=== PATIENT | female | born 1990 | race Caucasian/White ===

== ENCOUNTER → 2017-04-11 | Outpatient (CLI) | payer BC ==
--- NOTE | 2017-04-11 17:54 | DIAGNOSTIC IMAGING REPORT ---
L LOWER EXT JOINT WITHOUT CLINICAL HISTORY: KNEE trauma. Pain. TECHNIQUE: Multiaxial MRI acquisition COMPARISON STUDY: None FINDINGS: Signal characteristics of the osseous structures are considered unremarkable. There is a very slight contusion of the central aspect lateral femoral condyle. There is a trace amount of bone marrow edematous change of the lateral femoral condyle. The patellofemoral joint is unremarkable. A small joint effusion is present. There is a tear of the anterior cruciate ligament. Posterior cruciate ligament appears intact. the medial and lateral menisci are unremarkable. There is moderate soft tissue edematous change about the knee. IMPRESSION: 1. Tear anterior cruciate ligament. 2. Minimal contusion lateral femoral condyle and lateral tibial plateau. 3. Joint effusion. 4. All remaining ligamentous and tendinous structures are intact. The above report was generated using voice recognition software. It may contain grammatical, syntax or spelling errors. Electronically signed by: Mason Shrestha M.D. 04/11/2017 5:53 PM Dictated Date/Time: 04/11/2017 5:47 PM
== END | disposition home or self-care (01) ==
LOC: C.MRIBC 16:41
PROVIDERS: ATTEND Orthopaedic Surgery
DX: M25.562 Pain in left knee (principal); S83.512A Sprain of anterior cruciate ligament of left knee, initial encounter; X58.XXXA Exposure to other specified factors, initial encounter; M25.462 Effusion, left knee

== ENCOUNTER → 2017-05-18 | Day surgery (SDC) | payer BC ==
[2017-05-12 09:45] VITALS: Ht 162.6 cm; Wt 65.9 kg
[~2017-05-18] VITALS: Ht 162.6 cm; Wt 65.9 kg
[~2017-05-18] MED LIST: ATROPINE SULFATE 0.1 MG/ML 5ML SYR IV PRN; BUPIVACAINE/EPINEPHRINE 0.5% MPF 1:200,000 30 ML VIAL ONE; CEFAZOLIN 1000MG IV PUSH 7.5 ML IV SCH; CEFAZOLIN SOD 1 GM VIAL ONE; CEFAZOLIN SOD 1000MG/7.5 ML IV PUSH IV ONE; DEXAMETHASONE SOD INJ 4 MG/ML VIAL ONE; ETON1IMP2; EpHEDrine SULFATE INJ 50 MG/ML AMP IV PRN; EpINEphrine HCL INJ 1 MG/ML 1ML SYRINGE ONE; EpINEphrine INJ 1MG/ML AMP 1 MG/ML AMP ONE; FENTANYL CITRATE INJ 50 MCG/1 ML 2 ML VIAL IV PRN; FENTANYL CITRATE INJ 50 MCG/1 ML 2 ML VIAL ONE; KETO10TA PO; KETOROLAC TROMETHAMINE 30 MG/ML VIAL ONE; LACTATED RINGER'S 1000ML 1,000 ML IV SCH; LIDOCAINE HCL 2% 2 ML VIAL (20MG/ML) ONE; MIDAZOLAM HCL 1 MG/ML 2ML VIAL ONE; ONDANSETRON INJ 2 MG/ML 2 ML VIAL IV PRN; ONDANSETRON INJ 2 MG/ML 2 ML VIAL ONE; OXYC-57 PO; OXYCODONE/ACETAMINOPHEN 5-325 TAB PO PRN; PROPOFOL IV EMULSION 10 MG/ML 20 ML VIAL IV ONE; ROPIVACAINE 0.5% 5 MG/ML 30 ML VIAL ONE; SCOPOLAMINE 1.5 MG TDSY TD ONE; SODIUM CHLORIDE 0.9% 1000ML 1,000 ML IV SCH
--- NOTE | 2017-05-18 06:48 | History & Physical Bridge - SC ---
H&P Re-Evaluation Bridge Note: I have examined the patient, reviewed the History & Physical and in the interval since the performance of the History & Physical I have noted the following changes of clinical significance: No changes noted
--- NOTE | 2017-05-18 09:37 | [facility] Post Operative Brief Note ---
Immediate Operative Summary Operative Date May 18, 2017. Pre-Operative Diagnosis Left Knee ACL Rupture Post-Operative Diagnosis same Procedure(s) Performed Left Knee Arthroscopic Anterior Cruciate Ligament Reconstruction with Hamstring Autograft Surgeon Dr. Haro Trace Evidence Technician Surgeon(s) Josh Castro PA-C Estimated Blood Loss Minimal Findings Consistent with Post-Op Diagnosis Specimens None Drains None Anesthesia Type General Regional Complication(s) none Disposition Accompanied Pt To Recovery: no Disposition: Recovery Room / PACU
--- NOTE | 2017-05-18 09:37 | Discharge Instructions-SurgCtr ---
Discharge Instructions Date of Service May 18, 2017. Visit Reason for Visit: Left Knee Acl Rupture Discharge Discharge Diagnosis / Problem: LEFT ACL TEAR Discharge Goals Goal(s): Decrease discomfort, Improve function, Therapeutic intervention Activity Recommendations Activity Limitations: per Instructions/Follow-up section Weightbearing Status: Left weightbearing (as tolerated WITH KNEE IMMOBILIZER ) Anesthesia . Post Anesthesia Instructions: If you have had General Anesthesia or IV Sedation: * Do not drive today. * Resume driving when surgeon permits. * Do not make important decisions or sign legal documents today. * Call surgeon for: 1. Temperature elevations greater than 101 degrees F. 2. Uncontrollable pain. 3. Excessive bleeding. 4. Persistent nausea and vomiting. 5. Medication intolerance (nausea, vomiting or rash). * For nausea and vomiting use only clear liquids such as: tea, soda, bouillon until nausea subsides, then gradually increase diet as tolerated. * If you have any concerns or questions, call your surgeon's office. If physician is unavailable and it is an emergency, call 911 or go to the nearest emergency room. . Instructions / Follow-Up Instructions / Follow-Up MEDICATIONS: * Resume previous medications unless instructed otherwise by your surgeon. * Always take pain medication on a full stomach or with food to avoid upset stomach. * Do not drink alcohol or drive while taking narcotics. * Ibuprofen or Tylenol may be taken if narcotic not needed. NO IBUPROFEN WHILE TAKING TORADOL SPECIAL CARE INSTRUCTIONS: __ None _X_ Keep extremity elevated and iced x 48 hours; apply ice 20-30 minutes 8-10 times/day. May remove at night. _X_ Crutches __ May discard when able X__ Brace (FOR WEIGHTBEARING/WALKING UNTIL FOLLOW UP APPOINTMENT) __ 24 hrs/day __ Remove at night X__ Dressing __ Maintain until seen in office, may shower with plastic over site _X_ Remove dressings in 24-48 hours and then may shower _X_ Cover incisions with band-aids after showering _X_ Do not remove steri-strips Call physician if chills or temperature rises above 102 degrees or pain unrelieved by prescribed pain medications. Office [phone] FOLLOW UP IN 2 WEEKS Diet Recommendations Home Diet: resume previous diet Procedures Procedures Performed: Left Knee Arthroscopic Anterior Cruciate Ligament Reconstruction with Hamstring Autograft Pending Studies Studies pending at discharge: no Medical Emergencies . Who to Call and When: Medical Emergencies: If at any time you feel your situation is an emergency, please call 911 immediately. . Non-Emergent Contact Non-Emergency issues call your: Surgeon . . "Provider Documentation" section prepared by Darnell Castro. .
[2017-05-18] MEDS: FENTANYL CITRATE INJ 50 MCG/1 ML 2 ML VIAL IV PRN ×3 (10:12→10:34)
--- NOTE | 2017-05-18 10:44 | OPERATIVE REPORT ---
DATE OF OPERATION: 05/18/2017 SURGEON: Tito Haro MD POLLS OR SURVEYS INTERVIEWER: Darnell PETE PREOPERATIVE DIAGNOSIS: Left knee anterior cruciate ligament tear. POSTOPERATIVE DIAGNOSIS: Same. PROCEDURE PERFORMED: 1. Left knee exam under anesthesia. 2. Left knee diagnostic arthroscopy. 3. Left knee arthroscopic ACL reconstruction with 7/7.5 mm semitendinosus/gracilis autograft. COMPLICATIONS: None. ESTIMATED BLOOD LOSS: Minimal. TOURNIQUET TIME: 59 minutes at 300 mmHg. ANESTHESIA: General with adductor canal block. DRAINS: None. SPECIMENS: None. 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 She came down and landed awkwardly on her left knee, it gave out and felt a pop. She is seen in clinic and diagnosed with an ACL tear, which was confirmed by MRI. She has restored her knee range of motion and elected to proceed with surgical treatment. OPERATIVE FINDINGS: Examination under anesthesia of the left knee revealed just a small knee effusion. Her range of motion was full extension and slight hyperextension to 135 degrees of flexion. A positive Zeferino, grade 2 pivot, negative anterior drawer, negative posterior drawer. No varus or valgus instability. Swathi's is negative for mechanical symptoms. There was no posterolateral rotatory instability. ARTHROSCOPIC FINDINGS: Arthroscopic findings revealed a very small knee effusion. The undersurface of the patella and trochlea were well preserved. In the intercondylar notch, the ACL was torn. The PCL was intact. In the medial compartment, the articular surface and meniscus was normal. In the lateral compartment, the articular surface was normal. There was just a small scuff on the superior surface of the posterior horn of the lateral meniscus which was just a scuff really and less than 10% torn. This was completely stable and there is no indication for repair. OPERATIVE PROCEDURE: The patient taken to the operating, identified and placed on the operating table in supine position. All contact areas were appropriately padded. An adductor canal block had been provided in the holding area. General anesthetic was implemented. The patient did receive IV antibiotics. A left thigh tourniquet was then placed and the left knee was then examined under anesthesia with findings as described above. The left thigh was then prepped and draped in usual sterile fashion. Left leg was elevated and exsanguinated with Esmarch and tourniquet was placed at 300 mmHg. A 4-5 cm incision made directly over the pes tendons. Sharp dissection was got through the subcutaneous tissues down to the level of the sartorius fascia. The subcutaneous tissue mobilized circumferentially. An oblique incision was made in the sartorius fascia above the hamstring tendons. The hamstring tendons were then harvested off the anterior aspect of the tibia. A #2 Ticron whipstitch was placed in the end of each tendon. Each tendon was then harvested with a closed ended tendon stripper. They were taken to back table and cut to 21 cm in length. The muscle was stripped off the opposite end of the tendon. A similar #2 Ticron whipstitch was placed in the opposite end of the tendon. The tendons were then folded over. The femoral side fit through a 7 graft tunnel and the tibial side through a 7.5. The graft was then placed on the graft board and 10 pounds of tension were applied until ready for implantation. During graft preparation, routine left knee arthroscopy was then performed through typical anteromedial and anterolateral portals. A superolateral outflow portal was established for outflow. The remnant of the ACL was excised. A small notchplasty was performed. The upper part of the notch was pretty tight and very much in A-frame look to it and we did widen this out to a saqib arch appearance, but the inferior aspect was fairly wide and did not need much notchplasty. Once the notchplasty was completed, I examined the knee and there was no need for meniscal or cartilage work. Attention was then drawn to the ACL reconstruction. With the use of the tibial guide set at 50 degrees, a guidewire was placed in the area of proposed tibial tunnel. It was overreamed with an 7.5 mm solid reamer. Tunnel was cleaned of all soft tissue debris. A 6 mm over the top guide was placed in the anterior medial portal and the knee was maximally flexed. The guidewire was placed in the area of the proposed femoral tunnel. This was overdrilled with a 4.5 mm Endobutton drill bit. The tunnel length measured 35 mm in length. A 15 mm closed loop Endobutton was selected. The tunnel was then overdrilled with a 7 mm acorn reamer for a distance of 30 mm. The tunnel was cleaned of all debris. The graft was then looped over a 15 mm closed loop Endobutton. The Beath pin was then used to pass the graft through the tibial tunnel up into the femoral tunnel. The Endobutton was flipped. The knee was cycled several times and brought out into full extension. There was no impingement. The graft was then tensioned with the knee in full extension with the Intrafix tensioner at 20 pounds. The tunnel was then dilated and a small Biocryl Intrafix sheath was placed followed by a 6/7 Biocryl Intrafix screw. This brought excellent distal fixation. The knee was examined. There is no Zeferino, no pivot. The scope was placed back in the knee joint. The graft was appropriately tensioned in both flexion and extension. The shaver was then placed to debride the knee of all extraneous debris. Once this was complete, the arthroscopic instruments were then removed from the joint. The portals were closed with 3-0 Prolene suture in a simple fashion. The knee was injected with 30 mL of 0.5% ropivacaine with epinephrine and 30 mg of Toradol. The sartorius fascia was then closed over the anterior medial aspect of the tibia with 0 Vicryl suture. The wound was irrigated. The tourniquet was then let down for a tourniquet time of 59 minutes. Hemostasis was assured with use of electrocautery. The subcutaneous tissue then closed with #2 Dexon suture in a buried interrupted fashion. Skin was closed with 3-0 Prolene suture in a subcuticular fashion. Leg was then cleaned and dried, Steri-Strips, Xeroform, 4 x 4, sterile cast padding and Lul bandage, cold pack and knee immobilizer applied. The patient then brought out of general anesthesia and transferred to the recovery room in stable condition. The patient tolerated with no complication. All needle and sponge counts were correct at the end of the operation. I attest to the content of the Intraoperative Record and any orders documented therein. Any exceptions are noted below. MTDD
[2017-05-18 11:02] VITALS: TEMP 36.6
[2017-05-18 12:00] VITALS: BP 112/66; PULSE 78; O2SAT 100
--- NOTE | 2017-05-18 12:19 | Anesthesia Progress Nt - [facility] ---
Anesthesia Post Op Note Date & Time May 18, 2017 at 12:18 Vital Signs Pain Intensity: 2 Vital Signs Past 12 Hours Date Time Temp Pulse Resp B/P (MAP) Pulse Ox O2 Delivery O2 Flow Rate FiO2 05/18/17 12:00 78 16 112/66 (81) 100 Room Air 05/18/17 11:39 94 14 113/68 (83) 100 Room Air 05/18/17 11:02 36.6 85 12 112/72 (85) 97 05/18/17 10:57 94 15 96 05/18/17 10:57 96 15 05/18/17 10:57 36.6 95 12 123/68 98 Room Air 05/18/17 10:55 123/68 05/18/17 10:52 114 14 05/18/17 10:52 113 14 98 05/18/17 10:50 120/68 05/18/17 10:47 101 26 96 05/18/17 10:47 101 26 05/18/17 10:45 124/64 05/18/17 10:42 95 22 05/18/17 10:42 93 22 97 05/18/17 10:40 104/72 05/18/17 10:37 81 14 05/18/17 10:37 80 14 100 05/18/17 10:35 129/72 05/18/17 10:32 98 25 100 05/18/17 10:32 99 25 05/18/17 10:30 120/71 05/18/17 10:27 92 25 05/18/17 10:27 93 25 100 05/18/17 10:25 124/71 05/18/17 10:22 105 16 99 05/18/17 10:22 103 16 05/18/17 10:21 109/67 05/18/17 10:17 88 13 05/18/17 10:17 88 13 100 05/18/17 10:15 125/82 05/18/17 10:12 91 15 100 05/18/17 10:12 91 15 05/18/17 10:10 119/79 05/18/17 10:07 113 17 100 05/18/17 10:07 111 17 05/18/17 10:05 128/76 05/18/17 10:02 87 19 100 05/18/17 10:02 89 19 4/11/18 10:01 88 19 100 05/18/17 10:01 93 19 05/18/17 10:00 127/82 05/18/17 09:56 82 21 05/18/17 09:56 81 21 100 05/18/17 09:55 132/74 05/18/17 09:51 88 19 05/18/17 09:51 88 19 97 05/18/17 09:50 134/76 05/18/17 09:46 83 24 100 05/18/17 09:46 83 24 05/18/17 09:45 128/76 05/18/17 09:42 121/76 05/18/17 09:41 36.7 87 12 121/76 99 Diffusion Mask 10 05/18/17 06:46 36.7 86 16 123/71 (88) 97 Room Air Notes Mental Status: alert / awake / arousable, participated in evaluation Pt Amnestic to Procedure: Yes Nausea / Vomiting: adequately controlled Pain: adequately controlled Airway Patency, RR, SpO2: stable & adequate BP & HR: stable & adequate Hydration State: stable & adequate Anesthetic Complications: no major complications apparent
== END | disposition home or self-care (01) ==
LOC: X.SURG 06:31
PROVIDERS: ATTEND Orthopaedic Surgery Sports Medicine
DX: S83.512A Sprain of anterior cruciate ligament of left knee, initial encounter (principal); X58.XXXA Exposure to other specified factors, initial encounter; Y93.68 Activity, volleyball (beach) (court); Z98.818 Other dental procedure status